=== PATIENT | male | born 1945 | race Caucasian/White ===

== ENCOUNTER → 2019-01-07 14:20 | Outpatient (CLI) | payer MEDICARE, BC, SELFPAY ==
--- NOTE | 2019-01-07 14:23 | DI.RAD.S_ITS ---
PROCEDURE: XR LUMBAR SPINE MIN 4V INDICATIONS: Eval TECHNIQUE: 4 views of the lumbar spine were acquired. COMPARISON: None. FINDINGS: Bones: 5 nonrib-bearing vertebrae are present. There is slightly levoscoliotic bony alignment centered at the L3 level.. No vertebral body compression fractures. No suspicious bony lesions. Degenerative disc disease is mild to moderate in severity at L2-L3 and mild at L1-2 and through the remainder of the LS spine. 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 Soft tissues: Overlying bowel gas pattern is normal. No suspicious soft tissue calcifications. Oblique images: No pars defects. IMPRESSION: The degree of degenerative disc disease present is relatively mild, but facet osteoarthritis is more prominent and becomes moderately severe at L4-5 and especially L5-S1 where significant spinal and foraminal stenosis likely is present. Dictated by: Darian Pelaez M.D. on 01/07/2019 at 15:21 Approved by: Darian Pelaez M.D. on 01/07/2019 at 15:23
== END ==
PROVIDERS: PCP Internal Medicine; Visit Provider Physical Medicine & Rehabilitation
DX: M47.816 Spondylosis without myelopathy or radiculopathy, lumbar region (principal); M51.36 Other intervertebral disc degeneration, lumbar region; M51.37 Other intervertebral disc degeneration, lumbosacral region; M70.61 Trochanteric bursitis, right hip; M51.26 Other intervertebral disc displacement, lumbar region; M47.27 Other spondylosis with radiculopathy, lumbosacral region; M46.96 Unspecified inflammatory spondylopathy, lumbar region
CPT/HCPCS: 20611; 72110; 99214; J0702